=== PATIENT | female | born 1950 ===

== ENCOUNTER 2021-06-14 06:00 | Day surgery (SDC) | payer OTHER ==
[~2021-06-14 06:00] MED LIST: NORVA PO; SIMVASTA PO; [UNRECOGNIZED DRUG - OTHER] PO
[2021-06-14] MEDS ORDERED: PERCOCET 5-3251 EACH PO (08:52)
== END 2021-06-14 10:30 | disposition home or self-care (01) ==
LOC: CIR.AMB 06:00
PROVIDERS: ATTEND Surgery
DX: C73 Malignant neoplasm of thyroid gland (principal); Z20.822 Contact with and (suspected) exposure to COVID-19